=== PATIENT | female | born 1950 | race Caucasian/White ===

== ENCOUNTER → 2016-12-04 | Day surgery (SDC) | payer OTHER, SELFPAY ==
[~2016-12-04] VITALS: Ht 162.6 cm; Wt 82.1 kg
== END ==
LOC: OPS 07:46
PROC: 0FT44ZZ Resection of Gallbladder, Percutaneous Endoscopic Approach (ICD-10-PCS; principal; 2016-12-04)
DX: K81.1 Chronic cholecystitis (principal); E03.9 Hypothyroidism, unspecified; I10 Essential (primary) hypertension; K21.9 Gastro-esophageal reflux disease without esophagitis; F41.9 Anxiety disorder, unspecified; M19.90 Unspecified osteoarthritis, unspecified site; E78.00 Pure hypercholesterolemia, unspecified; Z86.010 Personal history of colon polyps; Z82.49 Family history of ischemic heart disease and other diseases of the circulatory system; Z98.51 Tubal ligation status; Z90.710 Acquired absence of both cervix and uterus; Z79.899 Other long term (current) drug therapy; Z88.1 Allergy status to other antibiotic agents; Z88.5 Allergy status to narcotic agent; Z88.2 Allergy status to sulfonamides
CPT/HCPCS: 99070; J2704; J2710; J3010; J7635

== ENCOUNTER 2016-12-09 09:26 | Emergency (ER) | payer OTHER, SELFPAY ==
[2016-12-09 10:19] LABS: BASO % 0.3 % (0.1-1.2); EOS # 0.1 10_X3_uL (0.0-0.4); EOS % 1.4 % (0.7-5.8); GRAN # 5.4 10_X3_uL (1.6-6.1); HEMATOCRIT 43.3 % (34-45); HEMOGLOBIN 14.7 g/dL (11.2-15.7); LYMPH % 25.5 % (19.3-51.7); MEAN CORPUSCULAR HEMOGLOBIN 29.9 pg (27.0-33.0); MEAN CORPUSCULAR HGB CONC 33.9 g/dL (32.0-36.0); MEAN CORPUSCULAR VOLUME 88.2 fL (79-95); MEAN PLATELET VOLUME 10.6 fl (7.5-11.5); MONO # 0.5 10_X3_uL (0.2-0.9); MONO % 5.8 % (4.7-12.5); PLATELET COUNT 208 x10_3/uL (182-369); RED BLOOD COUNT 4.91 x10_6/uL (3.9-5.2); RED CELL DISTRIBUTION WIDTH 13.5 % (11.7-14.4)
[2016-12-09 10:37] LABS: ALBUMIN 4.3 gm/dL (3.4-5.0); ALKALINE PHOSPHATASE 69 U/L (50-136); ALT/SGPT 33 U/L (3.5-33.9); AMYLASE 37 U/L (15.62-74.58); AST/SGOT 27 U/L (7.04-26.96); BILIRUBIN,TOTAL 0.39 mg/dL (0.0-1.0); BLOOD UREA NITROGEN 10 mg/dL (7-18); CARBON DIOXIDE 25 mmol/L (21-32); CREATINE KINASE 22 U/L (21-215); CREATININE 0.6 mg/dL (0.6-1.3); GLUCOSE,RANDOM 120 mg/dL (70-99); LIPASE 25 U/L (6.75-60.75); POTASSIUM 4.1 mmol/L (3.5-5.1); SODIUM 138 mmol/L (136-145); TOTAL PROTEIN 7.5 gm/dL (6.4-8.2)
[2016-12-09 10:49] LABS: URINE BACTERIA TRACE (NONE SEEN); URINE BILIRUBIN NEGATIVE (NEGATIVE); URINE BLOOD NEGATIVE (NEGATIVE); URINE GLUCOSE (UA) NORMAL (NORMAL); URINE KETONE NEGATIVE (NEGATIVE); URINE LEUKOCYTE ESTERASE TRACE (NEGATIVE); URINE NITRATE NEGATIVE (NEGATIVE); URINE PROTEIN NEGATIVE (NEGATIVE); URINE RBC RARE /[HPF] (0-2); URINE SQUAMOUS EPITHELIAL CELL 0-10 /[HPF] (NONE SEEN); URINE WBC RARE /[HPF] (0-5); UROBILINOGEN NORMAL mg/dL (<1.0)
== END 2016-12-09 13:05 | disposition home or self-care (01) ==
LOC: ER 09:26
PROVIDERS: Family Medicine
DX: R10.9 Unspecified abdominal pain (principal); I10 Essential (primary) hypertension; Z90.49 Acquired absence of other specified parts of digestive tract; Z90.710 Acquired absence of both cervix and uterus; Z98.890 Other specified postprocedural states; Z88.1 Allergy status to other antibiotic agents; Z88.2 Allergy status to sulfonamides; Z79.899 Other long term (current) drug therapy
CPT/HCPCS: 36415; 74020; 76700; 80053; 81001; 82150; 82550; 82553; 83605; 83690; 85025; 93005; 99070; 99284-25